=== PATIENT | male | born 1960 | race Native Hawaiian/Other Pacific Islander ===

== ENCOUNTER 2017-12-19 15:53 | Outpatient (CLI) | payer OTHER | END 2017-12-19 22:51 | disposition home or self-care (01) | LOC: LABW 15:53 | DX: G40.209 Localization-related (focal) (partial) symptomatic epilepsy and epileptic syndromes with complex partial seizures, not intractable, without status epilepticus (principal); G61.89 Other inflammatory polyneuropathies | CPT/HCPCS: 36415; 80185 ==

== ENCOUNTER 2018-02-15 20:20 | Emergency (ER) | payer OTHER ==
[~2018-02-15] VITALS: Ht 175.3 cm; Wt 83.9 kg
[2018-02-15 20:53] VITALS: TEMP 97.5
[2018-02-15] MEDS ORDERED: KEPPRA750 MG PO (20:58)
[2018-02-15] MEDS ORDERED: TRAZ50TA36 PO (20:59)
[2018-02-15] MEDS ORDERED: AMLODIPINE BESYLATE PO (20:59)
[2018-02-15] MEDS ORDERED: PHENYTOIN EX100 MG PO (20:59)
[2018-02-15] MEDS ORDERED: TAMSULOSIN0.4 MG PO (21:00)
[2018-02-15] MEDS ORDERED: VIMPAT100 MG PO (21:00)
[2018-02-15] MEDS ORDERED: ENDOCET1 TA3 PO (21:01)
[2018-02-15] MEDS ORDERED: OMEPRAZOLE40 MG PO (21:01)
[2018-02-15] MEDS ORDERED: AMBIEN CR12.5 MG PO (21:02)
[2018-02-15] MEDS ORDERED: XANAX XR0.5 MG PO (21:02)
[2018-02-15] MEDS ORDERED: ISOS30TA17 PO (21:03)
[2018-02-15] MEDS ORDERED: RANO500T PO (21:03)
[2018-02-15] MEDS ORDERED: BACLOFEN10 MG PO (21:03)
[2018-02-15] MEDS ORDERED: KP FOLIC ACID1 MG PO (21:04)
[2018-02-15] MEDS ORDERED: EZET10TA13 PO (21:04)
[2018-02-15] MEDS ORDERED: GABA300C2 PO (21:05)
[2018-02-15 21:50] VITALS: BP 150/82
== END 2018-02-15 21:50 | disposition home or self-care (01) ==
LOC: ED 20:20
DX: T63.331A Toxic effect of venom of brown recluse spider, accidental (unintentional), initial encounter (principal); Y92.89 Other specified places as the place of occurrence of the external cause
CPT/HCPCS: 99283

== ENCOUNTER 2018-04-15 17:33 | Emergency (ER) | payer OTHER ==
[~2018-04-15 17:33] MED LIST: AMBIEN CR12.5 MG PO; AMLODIPINE BESYLATE PO; BACLOFEN10 MG PO; ENDOCET1 TA3 PO; EZET10TA13 PO; GABA300C2 PO; ISOS30TA17 PO; KEPPRA750 MG PO; KP FOLIC ACID1 MG PO; OMEPRAZOLE40 MG PO; PHENYTOIN EX100 MG PO; RANO500T PO; TAMSULOSIN0.4 MG PO; TRAZ50TA36 PO; VIMPAT100 MG PO; XANAX XR0.5 MG PO
[2018-04-15 18:45] LABS: PLATELET COUNT 258 K/uL (142-355)
[2018-04-15 18:55] LABS: POTASSIUM 3.6 mmol/L (3.6-5.2)
[2018-04-15 20:25] VITALS: BP 162/83; TEMP 98.8
== END 2018-04-15 20:25 | disposition home or self-care (01) ==
LOC: ED 17:33
PROVIDERS: Family Medicine
DX: E86.0 Dehydration (principal); R11.0 Nausea
CPT/HCPCS: 36415; 80053; 81000; 85027; 96365; 96374; 99284; J2405